=== PATIENT | male | born 1975 | race Caucasian/White ===

== ENCOUNTER 2021-10-19 15:21 | Emergency (ER) | payer OTHER, SELFPAY ==
[2021-10-19 15:23] VITALS: BP 160/115; PULSE 70; RESP 19; TEMP 36.5; O2SAT 99; BMI 40.7
--- NOTE | 2021-10-19 17:17 | CT_ITS ---
PROCEDURE INFORMATION: Exam: CT Abdomen And Pelvis Without Contrast Exam date and time: 10/19/2021 5:25 PM Age: 46 years old Clinical indication: Abdominal pain; Flank; Right; Additional info: Flank pain- right side TECHNIQUE: Imaging protocol: Computed tomography of the abdomen and pelvis without contrast. Radiation optimization: All CT scans at this facility use at least one of these dose optimization techniques: automated exposure control; mA and/or kV adjustment per patient size (includes targeted exams where dose is matched to clinical indication); or iterative reconstruction. COMPARISON: No relevant prior studies available. FINDINGS: Tubes, catheters and devices: None noted. Lungs: Lung bases appear clear. Heart: No significant coronary calcifications. No cardiomegaly. No significant pericardial effusion. Liver: Normal. No mass. Gallbladder and bile ducts: Normal. No calcified stones. No ductal dilation. Pancreas: Normal. No ductal dilation. Spleen: Normal. No splenomegaly. Adrenal glands: Normal. No mass. Kidneys and ureters: Normal. No hydronephrosis. Stomach and bowel: Unremarkable. No obstruction. No mucosal thickening. Appendix: No evidence of appendicitis. Intraperitoneal space: Unremarkable. No free air. No significant fluid collection. Retroperitoneal space: No significant retroperitoneal inflammatory changes are noted. Vasculature: Unremarkable. No abdominal aortic aneurysm. Lymph nodes: Unremarkable. No enlarged lymph nodes. Urinary bladder: Unremarkable as visualized. Reproductive: Unremarkable as visualized. Bones/joints: Unremarkable. No acute fracture. Soft tissues: Unremarkable. IMPRESSION: 1. No acute findings. 2. No CT evidence of nephroureterolithiasis.
[2021-10-19 17:38] LABS: Basophils # 0.1 K/mm3 (0-0.2); Basophils % 1.3 % (0.1-2.0); Eosinophils # 0.2 K/mm3 (0.0-0.4); Eosinophils % 3.2 % (0.1-12.0); Hematocrit 49.3 % (42.0-52.0); Hemoglobin 16.1 g/dL (14.1-18.0); Lymphocytes # 1.6 K/mm3 (0.7-4.5); Lymphocytes % 27.3 % (10-50); Mean Corpuscular HGB Conc 32.7 g/dL (31.8-35.4); Mean Corpuscular Volume 94.7 fl (80-94); Mean Platelet Volume 8.2 fl (7.4-10.4); Monocytes # 0.4 K/mm3 (0.1-1.0); Monocytes % 6.9 % (1.7-9.3); Neutrophils # 3.5 K/mm3 (1.8-7.8); Neutrophils % 61.3 % (37.0-80.0); Platelet Count 223 K/mm3 (142-424); Red Cell Distribution Width 15.2 % (11.5-17.5); White Blood Count 5.8 K/mm3 (4.8-10.8)
[2021-10-19 17:39] LABS: Chloride 105 mmol/L (98-107); Potassium 4.3 mmoL/L (3.5-5.1); Sodium 139 mmol/L (136-145)
[2021-10-19 17:41] LABS: Alanine Aminotransferase 24 U/L (12-78); Aspartate Amino Transferase 36 U/L (17-59); Blood Urea Nitrogen 17 mg/dl (9-20); Creatinine Clearance Estimated 175 mL/min (50-200); Estimated Glomerular Filt Rate 92 ml/min (>60); GFR (African American) 111 ML/MIN (>60)
[2021-10-19 17:42] LABS: Albumin Level 4.1 g/dl (3.5-5.0); Albumin/Globulin Ratio 1.2 (1.1-1.8); Alkaline Phosphatase 75 U/L (38-126); Anion Gap 9.3 mEq/L (5-15); Bilirubin,Total 1.5 mg/dl (0.2-1.3); Calcium 8.8 mg/dl (8.4-10.2); Carbon Dioxide 29 mmol/L (22.0-30.0); Globulin 3.4 g/dL (1.3-3.2); Glucose 88 mg/dl (74-100); Total Protein,Serum 7.5 g/dl (6.3-8.2)
--- NOTE | 2021-10-19 19:00 | HMH.EDGENADL ---
ED Disposition Clinical Impression: Right upper quadrant abdominal pain Disposition: Home, Self-Care Condition on Discharge: Good Instructions: DI for Acute Abdominal Pain Additional Instructions: Restart lisinopril and Protonix as prescribed. You are being provided with a list of physicians available for follow-up of your condition. Please call a physician on this list to arrange a follow-up appointment as soon as possible. Discuss gallbladder ultrasound with primary care physician when you follow-up. Additional instructions for ABDOMINAL PAIN: See your physician as soon as possible for further evaluation. Return immediately if worsening abdominal pain, vomiting, shortness of breath, fever, vomiting of blood or abdominal distention. Prescriptions: lisinopriL [Lisinopril] 10 mg PO DAILY #30 tab Transmission Status: Pending to [facility] Pantoprazole Sodium [Protonix 40mg tablet] 40 mg PO DAILY #30 tab Transmission [facility]: [facility] Referrals: Provider,Referral, [Primary Care Provider] - - Critical Care Critical Care Time: No Attestation: On 10/19/21, the high probability of a clinically significant, sudden or life threatening deterioration of the following system(s) required my full and direct attention, intervention and personal management. The time I documented below is in addition to time spent performing reported procedures but includes the following listed in this critical care notation. Medical Decision Making - Madhu Inquiry Pt receiving controlled substance: Yes Madhu was queried for this patient: Yes Risks and benefits of using a controlled substance: were not discussed with pt by me Vital Signs: 10/19/21 15:23 Temperature 97.7 F Temperature Source Oral Pulse Rate [Left Radial] 70 Respiratory Rate 19 Blood Pressure [Right Arm] 160/115 H Blood Pressure Mean [Right Arm] 130 Blood Pressure Source [Right Arm] Automatic Cuff Blood Pressure Position [Right Arm] Sitting 02 Sat by Pulse Oximetry 99 Oxygen Delivery Method Room Air - Lab Data Lab Results 10/19/21 17:05: WBC 5.8, RBC 5.20, Hgb 16.1, Hct 49.3, MCV 94.7 H, MCH 31.0, MCHC 32.7, RDW 15.2, Plt Count 223, MPV 8.2, Neut % (Auto) 61.3, Lymph % (Auto) 27.3, [place] % (Auto) 6.9, Eos % (Auto) 3.2, Baso % (Auto) 1.3, Neut # (Auto) 3.5, Lymph # (Auto) 1.6, [place] # (Auto) 0.4, Eos # (Auto) 0.2, Baso # (Auto) 0.1 10/19/21 17:05: Sodium 139, Potassium 4.3, Chloride 105, Carbon Dioxide 29, Anion Gap 9.3, BUN 17, Creatinine 0.90, Estimated Creat Clear 175, Estimated GFR 92, Est GFR ( Amer) 111, Glucose 88, Calcium 8.8, Total Bilirubin 1.5 H, AST 36, ALT 24, Alkaline Phosphatase 75, Total Protein 7.5, Albumin 4.1, Globulin 3.4 H, Albumin/Globulin Ratio 1.2 10/19/21 17:05: Lipase 71 10/19/21 19:25: Urine Color Dk yellow, Urine Appearance Clear, Urine pH 6.0, Ur Specific [place] 1.025, Urine Protein Negative, Urine Glucose (UA) Negative, Urine Ketones Negative, Urine Blood Negative, Urine Nitrate Negative, Urine Bilirubin Negative, Urine Urobilinogen 1.0, Ur Leukocyte Esterase Negative, Urine WBC 3-5, Ur Squamous Epith Cells Occasional, Amorphous Sediment Trace, Urine Mucus 4+ Result diagrams: 10/19/21 17:05 10/19/21 17:05 Orders (Tests/Meds): ED MEDICATIONS Generic Name Dose Route Start Last Admin Trade Name Freq PRN Reason Stop Dose Admin Lactated Ringer's 1,000 mls @ 999 mls/hr 10/19/21 17:30 10/19/21 17:23 Lactated Ringer's 1000 Ml Bag IV 10/19/21 18:30 999 mls/hr .Q1H1M MABLE Administration Sodium Chloride 10 ml 10/19/21 19:13 Sodium Chloride 0.9% 10ml Vial IV 11/18/21 19:12 NEEDED PRN dilute protonix Discontinued Medications Generic Name Dose Route Start Last Admin Trade Name Freq PRN Reason Stop Dose Admin Ketorolac Tromethamine 30 mg 10/19/21 17:16 10/19/21 17:23 Ketorolac 30mg/Ml Vial IV 10/19/21 17:17 30 mg ONCE ONE Administration Morph
[2021-10-19 19:19] LABS: Lipase 71 U/L (23-300)
[2021-10-19 19:28] LABS: Microscopic, Urine URINE MICROSCOPIC (MICROSCOPIC)
[2021-10-19 19:31] LABS: Appearance,Urine CLEAR (Clear); Blood, Urine Negative (Negative); Color,Urine DK YELLOW (Yellow); Glucose,Urine (UA) Negative (Negative); Ketones,Urine Negative (Negative); Leukocyte Esterase,Urine Negative (Negative); Nitrate,Urine Negative (Negative); Protein,Urine Negative (Negative); Specific Gravity, Urine 1.025 (1.005-1.030)
[2021-10-19 19:38] LABS: Bilirubin,Urine Negative (Negative)
[2021-10-19 19:39] LABS: Amorphous Sediment,Urine Trace /lpf; Mucus,Urine 4+ /lpf; Squamous Epithelial Cell,Urine Occasional #/hpf (0-5)
[2021-10-19 20:09] VITALS: BP 160/110; PULSE 70; RESP 18; TEMP 36.8; O2SAT 98
[2021-10-19 20:09] LABS: Amphetamine/Metha Screen,Urine Negative ng/ml (<1000); Benzodiazepines Screen,Urine Negative ng/ml (<200)
[2021-10-19 20:10] LABS: Barbiturates Screen,Urine Negative ng/ml (<200)
[2021-10-19 20:11] LABS: Cannabinoid Screen,Urine Positive ng/ml (<50); Cocaine Screen,Urine Negative ng/ml (<300)
[2021-10-19 20:12] LABS: Methadone Screen,Urine Negative ng/ml (<300)
[2021-10-19 20:13] LABS: Opiate Screen,Urine Positive ng/ml (<300); Phencyclidine Screen,Urine Negative ng/ml (<25)
== END 2021-10-19 20:14 | disposition home or self-care (01) ==
PROVIDERS: Emergency Provider Emergency Medicine
DX: R10.11 Right upper quadrant pain (principal); R11.0 Nausea; Z79.899 Other long term (current) drug therapy
CPT/HCPCS: 74176; 80053; 80305; 81001; 83690; 85025; 96361; 96365; 96374; 96375; 99285; J2405

== ENCOUNTER 2022-03-09 14:19 | Emergency (ER) | payer OTHER, SELFPAY ==
[2022-03-09 14:20] VITALS: BP 211/127; PULSE 82; RESP 18; TEMP 36.8; O2SAT 97; BMI 40.7
--- NOTE | 2022-03-09 14:29 | XR_ITS ---
FINAL REPORT CLINICAL HISTORY: pain FINDINGS: RIGHT ANKLE 3 views were obtained. There is no acute fracture or dislocation. There are mild degenerative changes. A small chronic calcification is seen adjacent to the lateral malleolus. The mortise is intact. There is no soft tissue abnormality. IMPRESSION: No acute bony abnormality. Reviewed, Interpreted and Dictated by Uzair Mathew III, MD Transcribed by Precious Noriega Authenticated and [facility]
--- NOTE | 2022-03-09 14:29 | XR_ITS ---
FINAL REPORT CLINICAL HISTORY: Right foot pain FINDINGS: RIGHT FOOT Three views of the right foot were obtained. There is no acute fracture or dislocation. There is a small posterior calcaneal spur. There is also spurring of the 4th metatarsal. Visualized joint spaces are normally aligned. Soft tissues are unremarkable. IMPRESSION: No acute bony abnormality. Reviewed, Interpreted and Dictated by Uzair Mathew III, MD Transcribed by Precious Noriega Authenticated and . [facility]
--- NOTE | 2022-03-09 14:40 | PC.NURSE ---
XR AT BEDSIDE
--- NOTE | 2022-03-09 15:06 | PC.NURSE ---
ED MD AT BEDSIDE FOR EVALUATION
--- NOTE | 2022-03-09 15:31 | HMH.EDGENADL ---
ED Disposition Clinical Impression: Right ankle sprain Qualifiers: Encounter type: initial encounter Involved ligament of ankle: unspecified ligament Qualified Code(s): S93.401A - Sprain of unspecified ligament of right ankle, initial encounter Disposition: Home, Self-Care Condition on Discharge: Good Instructions: DI for Ankle Sprain Prescriptions: Ibuprofen [Ibuprofen 800mg Tablet] 800 mg PO TIDP PRN #20 tab PRN Reason: Moderate Pain Transmission Status: Pending to [facility] Referrals: Provider,MD Jin [Primary Care Provider] - Christopher Rees MD [Staff Physician] - - Critical Care Critical Care Time: No Attestation: On 03/09/22, the high probability of a clinically significant, sudden or life threatening deterioration of the following system(s) required my full and direct attention, intervention and personal management. The time I documented below is in addition to time spent performing reported procedures but includes the following listed in this critical care notation. Medical Decision Making - Medical Records Medical records reviewed: Yes: I reviewed the patient's medical records. - Madhu Inquiry Pt receiving controlled substance: No Vital Signs: 03/09/22 14:20 Temperature 98.3 F Temperature Source Oral Pulse Rate [Left Radial] 82 Respiratory Rate 18 Blood Pressure [Right Arm] 211/127 H Blood Pressure Mean [Right Arm] 155 Blood Pressure Source [Right Arm] Automatic Cuff Blood Pressure Position [Right Arm] Sitting 02 Sat by Pulse Oximetry 97 Oxygen Delivery Method Room Air Orders (Tests/Meds): ED MEDICATIONS Discontinued Medications Generic Name Dose Route Start Last Admin Trade Name Freq PRN Reason Stop Dose Admin Ketorolac Tromethamine 30 mg 03/09/22 15:10 Ketorolac 30mg/Ml Vial IM 03/09/22 15:11 ONCE ONE - Radiology Data #1 Image(s): Ankle, Foot/Toes Image Reviewed: Yes I reviewed the patient's radiology results, Yes I reviewed the patient's radiology image, Yes I have reviewed radiologist's interpretation Preliminary Findings: Normal/NAD - Reevaluation(s) Time: 15:34 Reevaluation #1: On reevaluation, patient's pain is improved. There is no fracture on x-ray. Patient be provided analgesics. Needs to rest ice and elevate the injury. Repeat exam shows no evidence of compartment syndrome. Given strict return precautions. Verbalized understanding. Medical Decision Narrative: 46-year-old male presenting with some right ankle pain. Concern for fracture versus sprain. Patient provided analgesics. Imaging obtained. General Adult HPI - General Chief complaint: PAIN Stated complaint: Swollen RT foot Time Seen by Provider: 03/09/22 14:25 Mode of Arrival: Ambulatory Limitations: No Limitations Description of Symptoms (Recalled from ER Triage Doc. by RN): c/o right ankle pain after hearing a pop in the ankle while walking, states he went to the ground after this event, 3 toes not moving, pain goes up the right calf. - History of Present Illness HPI narrative: This is a 46-year-old male presented to the emergency department with some right ankle pain. He states that it happened 2 days ago. He was walking in some sandals when he felt a pop. Is more located on the lateral side of the right ankle. Is worse when he tries to bear weight. States has not been getting any better so he came to the emergency department for evaluation. Pain is located on the left side of the ankle and radiates down into the toes and up to the calf. He is not having any swelling or difficulty breathing. Denies any headache or change in vision. No focal weakness. No fevers or chills. Abdominal pain or vomiting. No diarrhea. - Related Data Previous Rx's Medication Instructions Recorded Pantoprazole Sodium [Protonix 40mg 40 mg PO DAILY #30 tab 10/19/21 tablet] lisinopriL [Lisinopril] 10 mg PO DAILY #30 tab 10/19/21 Ibuprofen [Ibupro
[2022-03-09 15:59] VITALS: BP 163/90; PULSE 70; RESP 18; TEMP 36.9; O2SAT 98
== END 2022-03-09 16:00 | disposition home or self-care (01) ==
PROVIDERS: Emergency Provider Emergency Medicine
DX: S93.401A Sprain of unspecified ligament of right ankle, initial encounter (principal); M25.471 Effusion, right ankle; Z79.1 Long term (current) use of non-steroidal anti-inflammatories (NSAID)
CPT/HCPCS: 73610; 73630; 96372; 99284